=== PATIENT | male | born 1950 | race Caucasian/White ===

== ENCOUNTER 2022-05-18 12:37 | Inpatient (IN) ==
[2022-05-18] MEDS ORDERED: Ondansetron 4 mg VIAL 2 MG/ML 2 ml VIAL IV ONE ×2 (14:42→18:13)
[2022-05-18] MEDS ORDERED: NS 0.9% 1000 ml BAG 1,000 ML IV ONE ×2 (14:42→18:13)
[2022-05-18] MEDS ORDERED: Acetaminophen IV 1 GM/100ML 1,000 MG/100 ML BAG IV ONE (14:43)
[2022-05-18 15:35] LABS: ABS Lymphocytes 0.7 10^3/ul (1.0-4.8); ABS Neutrophils 14.4 10^3/ul (1.5-7.7); Eosinophil % 0.1 %; Hematocrit 46 % (42-52); Hemoglobin 14.8 g/dL (14.0-18.0); Mean Corpuscular HGB Conc 32 g/dL (31-36); Mean Corpuscular Hemoglobin 28 pg (27-31); Mean Corpuscular Volume 87 fL (80-94); Mean Platelet Volume 8.2 fL (7.4-10.4); Platelet Count 320 10^3/uL (150-450); Red Blood Count 5.32 10^6 /uL (4.18-5.48); Red Cell Distribution Width 14 % (10-15); White Blood Count 16.2 10^3/uL (3.5-10.8)
[2022-05-18 15:54] LABS: ALT 20 U/L (7-52); Albumin 4.1 g/dL (3.2-5.2); Albumin/Globulin Ratio 1.2 (1-3); Alkaline Phosphatase 149 U/L (35-149); Blood Urea Nitrogen 21 mg/dL (6-24); C Reactive Protein 299.38 mg/L (<8.01); CO2 Carbon Dioxide 22 mmol/L (22-32); Calcium 9.5 mg/dL (8.6-10.3); Chloride 92 mmol/L (101-111); Globulin 3.3 g/dL (2-4); Glucose 103 mg/dL (70-100); Lipase < 10 U/L (11.0-82.0); Sodium 130 mmol/L (135-145); Total Protein 7.4 g/dL (6.4-8.9); eGFR CKD-EPI 65.8 (>60)
[2022-05-18 16:07] LABS: AST 26 U/L (13-39); Anion Gap 16 mmol/L (2-11); Potassium 4.3 mmol/L (3.5-5.0)
[2022-05-18] MEDS ORDERED: Iodixanol (CONTRAST) 320 MG/ML 100 ML SDV IV ONE (16:16)
[2022-05-18] MEDS ORDERED: Pantoprazole VIAL 40 MG VIAL IV ONE (18:12)
[2022-05-18] MEDS ORDERED: Morphine 4 MG/ML VIAL (1 ml) IV ONE (18:13)
[2022-05-18] MEDS ORDERED: hydrALAZINE 20 mg/ml 1 ML Vial IV IV SLOW PU PRN (19:56)
[2022-05-18] MEDS ORDERED: Dextrose 50% Syringe 50 ml 25 GM/50 ML SYRINGE IV PUSH PRN (20:04)
[2022-05-18] MEDS ORDERED: Ondansetron 4 mg VIAL 2 MG/ML 2 ml VIAL IV PRN (22:02)
[2022-05-18 22:10] LABS: Urine Appearance Cloudy; Urine Bacteria Absent (Absent); Urine Bilirubin Negative (Negative); Urine Blood Negative (Negative); Urine Color Yellow; Urine Glucose 2+(150 mg/dL) (Negative); Urine Ketones 1+ (Negative); Urine Nitrite Negative (Negative); Urine Protein 1+(30 mg/dL) (Negative); Urine Red Blood Cell Trace(0-2/hpf) (Absent); Urine Specific Gravity 1.049 (1.002-1.030); Urine Squamous Epithelial Cell Present (Absent); Urine Urobilinogen Negative (Negative); Urine White Blood Cell Trace(0-5/hpf) (Absent)
[2022-05-18] MEDS: Insulin GLARGINE 100 un/ml 10 ml VIAL SUBCUT SCH (22:46)
[2022-05-18] MEDS: Enoxaparin 40 MG/0.4 ML SYR SUBCUT SCH (22:58)
[2022-05-19] MEDS: Lactated Ringers 1000 ml BAG 1,000 ML IV SCH ×4 (00:32→20:42)
[2022-05-19] MEDS: Morphine 2 MG/ML SYRINGE IV PRN ×5 (00:32→15:15)
[2022-05-19 06:56] LABS: ABS Lymphocytes 0.5 10^3/ul (1.0-4.8); ABS Neutrophils 14.9 10^3/ul (1.5-7.7); Hematocrit 36 % (42-52); Lymphocyte % 3.3 %; Mean Corpuscular HGB Conc 33 g/dL (31-36); Mean Corpuscular Hemoglobin 28 pg (27-31); Mean Corpuscular Volume 86 fL (80-94); Mean Platelet Volume 7.4 fL (7.4-10.4); Nucleated Red Blood Cells % 0.1; Platelet Count 286 10^3/uL (150-450); Red Blood Count 4.22 10^6 /uL (4.18-5.48); Red Cell Distribution Width 14 % (10-15); White Blood Count 16.4 10^3/uL (3.5-10.8)
[2022-05-19 07:59] LABS: Potassium 4.3 mmol/L (3.5-5.0); eGFR CKD-EPI 62.6 (>60)
[2022-05-19] MEDS: Pantoprazole VIAL 40 MG VIAL IV SCH (09:18)
[2022-05-19] MEDS ORDERED: Morphine 2 MG/ML SYRINGE IV ONE (10:00)
[2022-05-19] MEDS: cefTRIAXone 1 gm/50 mL D5W 1 GM/50 ML BAG IV SCH (11:15)
[2022-05-19] MEDS: metroNIDAZOLE IV 500 MG/100ML 500 MG/100 ML BAG IVPB SCH ×2 (11:55→21:11)
[2022-05-19] MEDS ORDERED: Midazolam 5 mg/5 ml VIAL 1 mg/ml 5 ml VIAL (5 mg) ONE (15:57)
[2022-05-19] MEDS ORDERED: fentaNYL 100 mcg/2 ml 50 MCG/ML VIAL ONE (15:58)
[2022-05-19] MEDS: Enoxaparin 40 MG/0.4 ML SYR SUBCUT SCH (20:46)
[2022-05-19] MEDS: Insulin GLARGINE 100 un/ml 10 ml VIAL SUBCUT SCH (20:52)
[2022-05-20] MEDS: Lactated Ringers 1000 ml BAG 1,000 ML IV SCH ×4 (01:46→19:49)
[2022-05-20] MEDS: metroNIDAZOLE IV 500 MG/100ML 500 MG/100 ML BAG IVPB SCH ×3 (04:25→19:49)
[2022-05-20 06:21] LABS: ABS Lymphocytes 0.8 10^3/ul (1.0-4.8); ABS Monocytes 1.2 10^3/ul (0-0.8); ABS Neutrophils 16.1 10^3/ul (1.5-7.7); Eosinophil % 0.2 %; Hematocrit 43 % (42-52); Hemoglobin 13.9 g/dL (14.0-18.0); Lymphocyte % 4.4 %; Mean Corpuscular HGB Conc 33 g/dL (31-36); Mean Corpuscular Hemoglobin 28 pg (27-31); Mean Corpuscular Volume 87 fL (80-94); Nucleated Red Blood Cells % 0.1; Platelet Count 291 10^3/uL (150-450); Red Cell Distribution Width 14 % (10-15); White Blood Count 18.1 10^3/uL (3.5-10.8)
[2022-05-20 06:39] LABS: Anion Gap 14 mmol/L (2-11); CO2 Carbon Dioxide 23 mmol/L (22-32); Calcium 9.1 mg/dL (8.6-10.3); Chloride 97 mmol/L (101-111); Potassium 4.4 mmol/L (3.5-5.0); Sodium 134 mmol/L (135-145)
[2022-05-20 06:45] LABS: Blood Urea Nitrogen 22 mg/dL (6-24); Glucose 113 mg/dL (70-100); eGFR CKD-EPI 55.4 (>60)
[2022-05-20] MEDS: Pantoprazole VIAL 40 MG VIAL IV SCH (08:31)
[2022-05-20 09:26] LABS: Indirect Bilirubin 0.6 mg/dL (0.3-1.0)
[2022-05-20 09:32] LABS: ALT 15 U/L (7-52); AST 23 U/L (13-39); Albumin/Globulin Ratio 1.1 (1-3); Alkaline Phosphatase 153 U/L (35-149); Globulin 2.8 g/dL (2-4); Total Protein 5.8 g/dL (6.4-8.9)
[2022-05-20] MEDS: cefTRIAXone 1 gm/50 mL D5W 1 GM/50 ML BAG IV SCH (12:27)
[2022-05-20 12:38] LABS: Lipase < 10 U/L (11.0-82.0)
[2022-05-20] MEDS: Morphine 2 MG/ML SYRINGE IV PRN ×4 (13:22→21:22)
[2022-05-20 16:42] LABS: Cholesterol 77 mg/dL; HDL Cholesterol 21.1 mg/dL
[2022-05-20 19:14] LABS: Amylase 20 U/L (29-103)
[2022-05-20 19:15] LABS: Amylase < 10 U/L (29-103)
[2022-05-20 19:20] LABS: C Reactive Protein 414.23 mg/L (<8.01)
[2022-05-20 19:28] LABS: LDL Cholesterol 37 mg/dL; Triglycerides 93 mg/dL
[2022-05-20] MEDS: Enoxaparin 40 MG/0.4 ML SYR SUBCUT SCH (19:50)
[2022-05-20] MEDS: Insulin GLARGINE 100 un/ml 10 ml VIAL SUBCUT SCH (22:41)
[2022-05-21] MEDS: Morphine 2 MG/ML SYRINGE IV PRN ×7 (00:18→22:58)
[2022-05-21] MEDS: Lactated Ringers 1000 ml BAG 1,000 ML IV SCH ×4 (00:42→20:16)
[2022-05-21] MEDS: metroNIDAZOLE IV 500 MG/100ML 500 MG/100 ML BAG IVPB SCH ×2 (03:30→12:31)
[2022-05-21 06:18] LABS: ABS Eosinophils 0.1 10^3/ul (0-0.6); ABS Lymphocytes 0.8 10^3/ul (1.0-4.8); ABS Monocytes 1.3 10^3/ul (0-0.8); ABS Neutrophils 12.9 10^3/ul (1.5-7.7); Eosinophil % 0.7 %; Hematocrit 36 % (42-52); Hemoglobin 11.4 g/dL (14.0-18.0); Lymphocyte % 5.4 %; Mean Corpuscular HGB Conc 32 g/dL (31-36); Mean Corpuscular Hemoglobin 28 pg (27-31); Mean Corpuscular Volume 88 fL (80-94); Mean Platelet Volume 7.5 fL (7.4-10.4); Platelet Count 268 10^3/uL (150-450); Red Blood Count 4.06 10^6 /uL (4.18-5.48); Red Cell Distribution Width 14 % (10-15); White Blood Count 15.1 10^3/uL (3.5-10.8)
[2022-05-21 06:37] LABS: Calcium 8.4 mg/dL (8.6-10.3); Magnesium 1.6 mg/dL (1.9-2.7); Potassium 4.1 mmol/L (3.5-5.0)
[2022-05-21 06:43] LABS: eGFR CKD-EPI 66.5 (>60)
[2022-05-21] MEDS ORDERED: Magnesium Sulfate 2 gm BAG 2 GM/50 ML BAG IVPB ONE (07:23)
[2022-05-21] MEDS: Pantoprazole VIAL 40 MG VIAL IV SCH (10:11)
[2022-05-21] MEDS: Acetaminophen IV 1 GM/100ML 1,000 MG/100 ML BAG IV SCH ×2 (10:41→18:21)
[2022-05-21] MEDS: cefTRIAXone 1 gm/50 mL D5W 1 GM/50 ML BAG IV SCH (11:31)
[2022-05-21] MEDS ORDERED: Dextrose 50% Syringe 50 ml 25 GM/50 ML SYRINGE IV PUSH PRN (11:42)
[2022-05-21] MEDS ORDERED: Iodixanol (CONTRAST) 320 MG/ML 100 ML SDV IV ONE (13:18)
[2022-05-21] MEDS ORDERED: Piperacillin/Tazobac ADVAN 3.375 GM in NS 0.9% 100 ml BAG 100 ML IV ONE (14:35)
[2022-05-21] MEDS ORDERED: Zosyn per Pharmacy NOTE FOLLOW UP SCH (15:00)
[2022-05-21 15:53] LABS: C Reactive Protein 248.36 mg/L (<8.01)
[2022-05-21 18:38] LABS: Amylase < 10 U/L (29-103)
[2022-05-21 18:44] LABS: Lipase < 10 U/L (11.0-82.0)
[2022-05-21] MEDS: Enoxaparin 40 MG/0.4 ML SYR SUBCUT SCH (20:15)
[2022-05-21] MEDS: ZOSYN 3.375 GM Q8H per EXTENDED INFUSION IV SCH (20:16)
[2022-05-21] MEDS: Insulin GLARGINE 100 un/ml 10 ml VIAL SUBCUT SCH (21:09)
[2022-05-22] MEDS: Morphine 2 MG/ML SYRINGE IV PRN ×4 (02:36→11:13)
[2022-05-22] MEDS: Acetaminophen IV 1 GM/100ML 1,000 MG/100 ML BAG IV SCH ×2 (02:39→09:27)
[2022-05-22] MEDS: Lactated Ringers 1000 ml BAG 1,000 ML IV SCH (03:05)
[2022-05-22] MEDS: ZOSYN 3.375 GM Q8H per EXTENDED INFUSION IV SCH ×3 (03:07→20:30)
[2022-05-22 06:23] LABS: ABS Eosinophils 0.1 10^3/ul (0-0.6); ABS Lymphocytes 0.8 10^3/ul (1.0-4.8); ABS Monocytes 1.2 10^3/ul (0-0.8); ABS Neutrophils 12.1 10^3/ul (1.5-7.7); Eosinophil % 0.9 %; Hematocrit 35 % (42-52); Hemoglobin 11.3 g/dL (14.0-18.0); Lymphocyte % 5.4 %; Mean Corpuscular HGB Conc 32 g/dL (31-36); Mean Corpuscular Hemoglobin 28 pg (27-31); Mean Corpuscular Volume 86 fL (80-94); Mean Platelet Volume 7.5 fL (7.4-10.4); Platelet Count 317 10^3/uL (150-450); Red Blood Count 4.06 10^6 /uL (4.18-5.48); Red Cell Distribution Width 14 % (10-15); White Blood Count 14.2 10^3/uL (3.5-10.8)
[2022-05-22 06:45] LABS: Albumin 2.2 g/dL (3.2-5.2); C Reactive Protein 196.07 mg/L (<8.01); Calcium 7.8 mg/dL (8.6-10.3); Globulin 2.2 g/dL (2-4); Magnesium 1.4 mg/dL (1.9-2.7); Potassium 3.3 mmol/L (3.5-5.0); Total Bilirubin 0.4 mg/dL (0.2-1.0); Total Protein 4.4 g/dL (6.4-8.9); eGFR CKD-EPI 82.4 (>60)
[2022-05-22] MEDS ORDERED: Potassium Chloride LIQUID 20 MEQ/15 ML LIQUID PO ONE (07:10)
[2022-05-22] MEDS: Pantoprazole VIAL 40 MG VIAL IV SCH (09:29)
[2022-05-22] MEDS: Enoxaparin 40 MG/0.4 ML SYR SUBCUT SCH (20:30)
[2022-05-22] MEDS: Insulin GLARGINE 100 un/ml 10 ml VIAL SUBCUT SCH (22:22)
[2022-05-23] MEDS: ZOSYN 3.375 GM Q8H per EXTENDED INFUSION IV SCH ×2 (03:21→13:07)
[2022-05-23 06:17] LABS: CO2 Carbon Dioxide 24 mmol/L (22-32); Calcium 7.7 mg/dL (8.6-10.3); Chloride 101 mmol/L (101-111); Sodium 134 mmol/L (135-145)
[2022-05-23 06:20] LABS: Anion Gap 9 mmol/L (2-11)
[2022-05-23 06:22] LABS: Blood Urea Nitrogen 10 mg/dL (6-24); Glucose 230 mg/dL (70-100); eGFR CKD-EPI 84.5 (>60)
[2022-05-23 06:33] LABS: Hematocrit 37 % (42-52); Hemoglobin 11.9 g/dL (14.0-18.0); Mean Corpuscular HGB Conc 32 g/dL (31-36); Mean Corpuscular Hemoglobin 28 pg (27-31); Mean Corpuscular Volume 87 fL (80-94); Red Blood Count 4.27 10^6 /uL (4.18-5.48); Red Cell Distribution Width 14 % (10-15); White Blood Count 12.8 10^3/uL (3.5-10.8)
[2022-05-23 07:33] LABS: Potassium Redraw 3.5 mmol/L (3.5-5.0)
[2022-05-23] MEDS: Pantoprazole VIAL 40 MG VIAL IV SCH (08:13)
[2022-05-23 08:29] LABS: Magnesium 1.3 mg/dL (1.9-2.7)
[2022-05-23] MEDS ORDERED: Magnesium Sulf 4 GM/100 ML IV 4,000 MG/100 ML BAG IVPB ONE (08:38)
[2022-05-23 08:57] LABS: ABS Eosinophils 0.2 10^3/ul (0-0.6); ABS Lymphocytes 0.8 10^3/ul (1.0-4.8); ABS Monocytes 0.8 10^3/ul (0-0.8); Eosinophil % 1.5 %; Lymphocyte % 6.2 %; Nucleated Red Blood Cells % 0.1; Platelet Count Platelets clumped. 10^3/uL (150-450)
[2022-05-23] MEDS ORDERED: Furosemide 20 mg/2 ml IV VIAL IV ONE (09:13)
[2022-05-23] MEDS: Insulin GLARGINE 100 un/ml 10 ml VIAL SUBCUT SCH (23:20)
[2022-05-23] MEDS: Enoxaparin 40 MG/0.4 ML SYR SUBCUT SCH (23:20)
[2022-05-24 06:06] LABS: ABS Basophils 0.1 10^3/ul (0-0.2); ABS Eosinophils 0.2 10^3/ul (0-0.6); ABS Monocytes 0.8 10^3/ul (0-0.8); Eosinophil % 1.7 %; Hematocrit 37 % (42-52); Hemoglobin 12.1 g/dL (14.0-18.0); Lymphocyte % 8.4 %; Mean Corpuscular HGB Conc 33 g/dL (31-36); Mean Corpuscular Hemoglobin 28 pg (27-31); Mean Corpuscular Volume 86 fL (80-94); Mean Platelet Volume 6.8 fL (7.4-10.4); Platelet Count 430 10^3/uL (150-450); Red Blood Count 4.27 10^6 /uL (4.18-5.48); Red Cell Distribution Width 14 % (10-15); White Blood Count 12.1 10^3/uL (3.5-10.8)
[2022-05-24 06:51] LABS: Potassium 3.3 mmol/L (3.5-5.0); eGFR CKD-EPI 91.1 (>60)
[2022-05-24] MEDS ORDERED: Furosemide 20 mg/2 ml IV VIAL IV ONE (08:11)
[2022-05-24] MEDS: KCL 20 MEQ/100 ML IVPREMIX 20 MEQ/100 ML BAG IV SCH ×3 (08:58→14:36)
[2022-05-24 10:00] LABS: Magnesium 1.5 mg/dL (1.9-2.7)
[2022-05-24] MEDS ORDERED: Magnesium Sulfate IV 3 GM in NS 0.9% 100 ml BAG 100 ML IVPB ONE (10:27)
[2022-05-24 14:41] LABS: C Reactive Protein 117.3 mg/L (<8.01)
[2022-05-24] MEDS: Enoxaparin 40 MG/0.4 ML SYR SUBCUT SCH (21:24)
[2022-05-24] MEDS: Insulin GLARGINE 100 un/ml 10 ml VIAL SUBCUT SCH (21:24)
[2022-05-25] MEDS ORDERED: Morphine 2 MG/ML SYRINGE IV ONE (03:56)
[2022-05-25 05:57] LABS: Hematocrit 38 % (42-52); Hemoglobin 12.6 g/dL (14.0-18.0); Mean Corpuscular HGB Conc 33 g/dL (31-36); Mean Corpuscular Hemoglobin 28 pg (27-31); Mean Corpuscular Volume 84 fL (80-94); Mean Platelet Volume 6.4 fL (7.4-10.4); Platelet Count 452 10^3/uL (150-450); Red Blood Count 4.52 10^6 /uL (4.18-5.48); Red Cell Distribution Width 14 % (10-15); White Blood Count 11.5 10^3/uL (3.5-10.8)
[2022-05-25 06:16] LABS: ABS Basophils 0.1 10^3/ul (0-0.2); ABS Eosinophils 0.2 10^3/ul (0-0.6); ABS Lymphocytes 1.2 10^3/ul (1.0-4.8); ABS Monocytes 0.7 10^3/ul (0-0.8); ABS Neutrophils 9.2 10^3/ul (1.5-7.7); Eosinophil % 1.9 %; Lymphocyte % 10.5 %; Nucleated Red Blood Cells % 0.2
[2022-05-25 06:34] LABS: Anion Gap 8 mmol/L (2-11); Blood Urea Nitrogen 8 mg/dL (6-24); CO2 Carbon Dioxide 33 mmol/L (22-32); Calcium 8.3 mg/dL (8.6-10.3); Chloride 98 mmol/L (101-111); Glucose 133 mg/dL (70-100); Magnesium 1.6 mg/dL (1.9-2.7); Potassium 3.7 mmol/L (3.5-5.0); Sodium 139 mmol/L (135-145); eGFR CKD-EPI 93.1 (>60)
[2022-05-25 06:55] LABS: CRP High Sensitivity > 80.00 mg/L (<2.00)
[2022-05-25 06:57] LABS: Erythrocyte Sed Rate 60 mm/Hr (0-19)
[2022-05-25 09:02] LABS: C Reactive Protein 87.84 mg/L (<8.01)
[2022-05-25] MEDS ORDERED: Potassium Chlor 20 meq TAB.ER PO ONE (11:28)
[2022-05-25] MEDS ORDERED: Magnesium Sulfate IV 3 GM in NS 0.9% 100 ml BAG 100 ML IVPB ONE (11:28)
[2022-05-25 15:11] LABS: ALT 11 U/L (7-52); AST 19 U/L (13-39); Albumin 2.7 g/dL (3.2-5.2); Alkaline Phosphatase 161 U/L (35-149); Globulin 2.8 g/dL (2-4); Indirect Bilirubin 0.2 mg/dL (0.3-1.0); Total Protein 5.5 g/dL (6.4-8.9)
[2022-05-25] MEDS: Insulin GLARGINE 100 un/ml 10 ml VIAL SUBCUT SCH (21:44)
[2022-05-25] MEDS: Enoxaparin 40 MG/0.4 ML SYR SUBCUT SCH (21:44)
[2022-05-26 05:43] LABS: Hematocrit 39 % (42-52); Hemoglobin 12.5 g/dL (14.0-18.0); Mean Corpuscular HGB Conc 32 g/dL (31-36); Mean Corpuscular Hemoglobin 27 pg (27-31); Mean Corpuscular Volume 85 fL (80-94); Mean Platelet Volume 6.3 fL (7.4-10.4); Platelet Count 461 10^3/uL (150-450); Red Blood Count 4.59 10^6 /uL (4.18-5.48); Red Cell Distribution Width 14 % (10-15); White Blood Count 12.1 10^3/uL (3.5-10.8)
[2022-05-26 06:23] LABS: Albumin 2.6 g/dL (3.2-5.2); Albumin/Globulin Ratio 0.9 (1-3); C Reactive Protein 73.25 mg/L (<8.01); Calcium 8.2 mg/dL (8.6-10.3); Globulin 2.9 g/dL (2-4); Magnesium 1.8 mg/dL (1.9-2.7); Potassium 4.1 mmol/L (3.5-5.0); Total Bilirubin 0.3 mg/dL (0.2-1.0); Total Protein 5.5 g/dL (6.4-8.9); eGFR CKD-EPI 74.1 (>60)
[2022-05-26 06:50] LABS: Erythrocyte Sed Rate 52 mm/Hr (0-19)
[2022-05-26] MEDS ORDERED: Lactated Ringers 1000 ml BAG 1,000 ML IV SCH (13:00)
[2022-05-26] MEDS ORDERED: Iodixanol (CONTRAST) 320 MG/ML 100 ML SDV IV ONE (14:46)
[2022-05-26] MEDS ORDERED: Zosyn per Pharmacy NOTE FOLLOW UP SCH (19:00)
[2022-05-26] MEDS ORDERED: Piperacillin/Tazobac ADVAN 3.375 GM in NS 0.9% 100 ml BAG 100 ML IV ONE (19:30)
[2022-05-26] MEDS: Enoxaparin 40 MG/0.4 ML SYR SUBCUT SCH (20:58)
[2022-05-26] MEDS: Insulin GLARGINE 100 un/ml 10 ml VIAL SUBCUT SCH (20:59)
[2022-05-27] MEDS: ZOSYN 3.375 GM Q8H per EXTENDED INFUSION IV SCH ×3 (00:07→16:47)
[2022-05-27 05:56] LABS: ABS Basophils 0.2 10^3/ul (0-0.2); ABS Eosinophils 0.2 10^3/ul (0-0.6); ABS Monocytes 0.6 10^3/ul (0-0.8); ABS Neutrophils 11.3 10^3/ul (1.5-7.7); Eosinophil % 1.3 %; Hematocrit 39 % (42-52); Hemoglobin 12.4 g/dL (14.0-18.0); Lymphocyte % 7.5 %; Mean Corpuscular HGB Conc 32 g/dL (31-36); Mean Corpuscular Hemoglobin 27 pg (27-31); Mean Corpuscular Volume 85 fL (80-94); Mean Platelet Volume 6.6 fL (7.4-10.4); Platelet Count 490 10^3/uL (150-450); Red Blood Count 4.51 10^6 /uL (4.18-5.48); Red Cell Distribution Width 14 % (10-15); White Blood Count 13.2 10^3/uL (3.5-10.8)
[2022-05-27 06:23] LABS: Calcium 8.4 mg/dL (8.6-10.3); Magnesium 1.5 mg/dL (1.9-2.7); Potassium 3.9 mmol/L (3.5-5.0); eGFR CKD-EPI 83.5 (>60)
[2022-05-27] MEDS ORDERED: Magnesium Sulfate 2 gm BAG 2 GM/50 ML BAG IVPB ONE (07:45)
[2022-05-27] MEDS ORDERED: Magnesium Sulfate 1 GM IV 1 GM/100 ML BAG IV ONE (08:45)
[2022-05-27] MEDS: Enoxaparin 40 MG/0.4 ML SYR SUBCUT SCH (20:37)
[2022-05-27] MEDS: Insulin GLARGINE 100 un/ml 10 ml VIAL SUBCUT SCH (20:38)
[2022-05-28] MEDS: ZOSYN 3.375 GM Q8H per EXTENDED INFUSION IV SCH ×2 (00:34→07:47)
[2022-05-28 06:54] LABS: ABS Eosinophils 0.2 10^3/ul (0-0.6); ABS Lymphocytes 1.4 10^3/ul (1.0-4.8); ABS Monocytes 0.8 10^3/ul (0-0.8); ABS Neutrophils 13.1 10^3/ul (1.5-7.7); Eosinophil % 1.2 %; Hematocrit 38 % (42-52); Hemoglobin 12.3 g/dL (14.0-18.0); Mean Corpuscular HGB Conc 32 g/dL (31-36); Mean Corpuscular Hemoglobin 28 pg (27-31); Mean Corpuscular Volume 85 fL (80-94); Mean Platelet Volume 6.6 fL (7.4-10.4); Platelet Count 597 10^3/uL (150-450); Red Blood Count 4.46 10^6 /uL (4.18-5.48); Red Cell Distribution Width 15 % (10-15); White Blood Count 15.5 10^3/uL (3.5-10.8)
[2022-05-28 07:30] LABS: Calcium 8.8 mg/dL (8.6-10.3); Potassium 4.2 mmol/L (3.5-5.0); eGFR CKD-EPI 67.9 (>60)
[2022-05-28 11:08] VITALS: BP 130/80
[2022-05-28] MEDS ORDERED: Triamcinolone 0.025% OINT 15 GM TUBE TOPICAL SCH (13:00)
[2022-05-28 13:42] LABS: Rapid COVID-19 Molecular Undetected (Undetected)
[2022-05-28] MEDS ORDERED: metroNIDAZOLE IV 500 MG/100ML 500 MG/100 ML BAG IVPB SCH (14:30)
[2022-05-28] MEDS ORDERED: cefTRIAXone 1 gm/50 mL D5W 1 GM/50 ML BAG IV SCH (15:30)
== END 2022-05-28 16:11 | disposition short-term general hospital (02) | DRG 438 ==
LOC: ED 12:37 → SUATTDRO 18:53 → EDHOLD 18:53 → MED 05-19 17:36
PROVIDERS: ADMIT Internal Medicine; ATTEND Hospitalist

== ENCOUNTER 2023-05-14 10:35 | Inpatient (IN) ==
[2023-05-14] MEDS ORDERED: NS 0.9% 1000 ml BAG 1,000 ML IV SCH (12:15)
[2023-05-14 13:55] LABS: ABS Basophils 0.1 10^3/uL (0.0-0.1); ABS Eosinophils 0.2 10^3/uL (0.0-0.5); ABS Lymphocytes 1.9 10^3/uL (1.0-4.8); ABS Monocytes 0.9 10^3/uL (0.0-1.1); ABS Neutrophils 4.6 10^3/uL (1.5-7.6); ABS Nucleated RBC 0.02 10^3/ul; Eosinophil % 2.2 %; Hematocrit 46.1 % (38-53); Hemoglobin 15.8 g/dL (13.2-16.3); Lymphocyte % 24.7 %; Mean Corpuscular Hemoglobin 28.8 pg (27-33); Mean Corpuscular Hgb Conc 34.2 g/dL (31-36); Mean Corpuscular Volume 84.3 fL (80-97); Mean Platelet Volume 7.5 fL (7.5-11.2); Nucleated Red Blood Cells % 0.3 /100 WBC (0.0-0.4); Platelet Count 363 10^3/uL (150-450); Red Blood Count 5.47 10^6/uL (4.06-5.63); Red Cell Distribution Width 14.2 % (12-17); White Blood Count 7.8 10^3/uL (3.6-10.2)
[2023-05-14 14:30] LABS: Urine Appearance Clear; Urine Bilirubin Negative (Negative); Urine Blood Negative (Negative); Urine Color Yellow; Urine Glucose 3+(>=500 mg/dL) (Negative); Urine Ketones Negative (Negative); Urine Nitrite Negative (Negative); Urine Protein Negative (Negative); Urine Specific Gravity 1.007 (1.002-1.030); Urine Urobilinogen Negative (Negative)
[2023-05-14] MEDS: Lactated Ringers 1000 ml BAG 1,000 ML IV SCH ×2 (14:31→16:21)
[2023-05-14 14:50] LABS: TSH Ultra Thyroid Stim Horm 2.35 mcIU/mL (0.34-5.60)
[2023-05-14 14:53] LABS: Albumin 4.5 g/dL (3.2-5.2); Calcium 10.6 mg/dL (8.6-10.3); Magnesium 2.2 mg/dL (1.9-2.7); Potassium 3.4 mmol/L (3.5-5.0); Total Bilirubin 0.4 mg/dL (0.2-1.0)
[2023-05-14 14:59] LABS: Albumin/Globulin Ratio 1.2 (1-3); Creatinine, Serum 1.49 mg/dL (0.67-1.17); Globulin 3.7 g/dL (2-4); Total Protein 8.2 g/dL (6.4-8.9); eGFR CKD-EPI 48.9 (>60)
[2023-05-14] MEDS ORDERED: Lactated Ringers 1000 ml BAG 1,000 ML IV ONE (16:22)
[2023-05-14 16:53] LABS: C Reactive Protein 38.68 mg/L (<8.01)
[2023-05-14] MEDS: Psyllium PAK PO SCH (18:36)
[2023-05-14] MEDS: Enoxaparin 40 MG/0.4 ML SYR SUBCUT SCH (18:36)
[2023-05-14] MEDS ORDERED: NS 0.9% 1000 ml BAG 1,000 ML IV ONE (20:15)
[2023-05-14] MEDS: Insulin GLARGINE 100 un/ml 10 ml VIAL SUBCUT SCH (21:42)
[2023-05-14] MEDS: Aspirin EC 81 mg TAB.EC (enteric coated) PO SCH (21:45)
[2023-05-15 06:18] LABS: ABS Basophils 0.1 10^3/uL (0.0-0.1); ABS Eosinophils 0.2 10^3/uL (0.0-0.5); ABS Lymphocytes 2.1 10^3/uL (1.0-4.8); ABS Monocytes 0.7 10^3/uL (0.0-1.1); ABS Neutrophils 3.2 10^3/uL (1.5-7.6); ABS Nucleated RBC 0.01 10^3/ul; Eosinophil % 3.8 %; Hematocrit 35.7 % (38-53); Hemoglobin 12.5 g/dL (13.2-16.3); Lymphocyte % 33.6 %; Mean Corpuscular Hgb Conc 35.1 g/dL (31-36); Mean Corpuscular Volume 82.6 fL (80-97); Mean Platelet Volume 7.4 fL (7.5-11.2); Nucleated Red Blood Cells % 0.2 /100 WBC (0.0-0.4); Platelet Count 277 10^3/uL (150-450); Red Blood Count 4.33 10^6/uL (4.06-5.63); Red Cell Distribution Width 13.8 % (12-17); White Blood Count 6.3 10^3/uL (3.6-10.2)
[2023-05-15 06:31] LABS: Calcium 8.8 mg/dL (8.6-10.3); Creatinine, Serum 1.32 mg/dL (0.67-1.17); Magnesium 1.7 mg/dL (1.9-2.7); Potassium 2.9 mmol/L (3.5-5.0); eGFR CKD-EPI 56.6 (>60)
[2023-05-15] MEDS ORDERED: Potassium Chlor 20 meq TAB.ER PO ONE ×2 (08:30→10:30)
[2023-05-15] MEDS ORDERED: Magnesium Sulfate IV 3 GM in NS 0.9% 100 ml BAG 100 ML IVPB ONE (09:00)
[2023-05-15] MEDS: Cholestyramine Resin 4 GM POWDER PO SCH (09:42)
[2023-05-15] MEDS: CANAGLIFLOZIN 100 MG PO SCH (09:42)
[2023-05-15] MEDS: Psyllium PAK PO SCH (09:43)
[2023-05-15] MEDS ORDERED: Influenza vaccine *QUAD* *2023-24* 0.5 ML SYRINGE IM ONE (14:27)
[2023-05-15] MEDS: Enoxaparin 40 MG/0.4 ML SYR SUBCUT SCH (17:55)
[2023-05-15] MEDS: Aspirin EC 81 mg TAB.EC (enteric coated) PO SCH (21:33)
[2023-05-15] MEDS: Insulin GLARGINE 100 un/ml 10 ml VIAL SUBCUT SCH (22:01)
[2023-05-16 06:14] LABS: ABS Basophils 0.1 10^3/uL (0.0-0.1); ABS Eosinophils 0.2 10^3/uL (0.0-0.5); ABS Lymphocytes 1.9 10^3/uL (1.0-4.8); ABS Monocytes 0.6 10^3/uL (0.0-1.1); ABS Neutrophils 3.6 10^3/uL (1.5-7.6); Eosinophil % 3.5 %; Hematocrit 36.1 % (38-53); Hemoglobin 12.6 g/dL (13.2-16.3); Lymphocyte % 29.9 %; Mean Corpuscular Hemoglobin 28.9 pg (27-33); Mean Corpuscular Volume 82.5 fL (80-97); Mean Platelet Volume 7.1 fL (7.5-11.2); Nucleated Red Blood Cells % 0.1 /100 WBC (0.0-0.4); Platelet Count 302 10^3/uL (150-450); Red Blood Count 4.38 10^6/uL (4.06-5.63); White Blood Count 6.4 10^3/uL (3.6-10.2)
[2023-05-16 06:40] LABS: Albumin 3.5 g/dL (3.2-5.2); Albumin/Globulin Ratio 1.3 (1-3); C Reactive Protein 6.65 mg/L (<8.01); Calcium 8.7 mg/dL (8.6-10.3); Creatinine, Serum 1.16 mg/dL (0.67-1.17); Globulin 2.8 g/dL (2-4); Magnesium 1.8 mg/dL (1.9-2.7); Potassium 2.9 mmol/L (3.5-5.0); Total Bilirubin 0.3 mg/dL (0.2-1.0); Total Protein 6.3 g/dL (6.4-8.9); eGFR CKD-EPI 66.1 (>60)
[2023-05-16] MEDS ORDERED: Magnesium Sulfate 2 gm BAG 2 GM/50 ML BAG IVPB ONE (07:24)
[2023-05-16] MEDS: Potassium Chlor 20 meq TAB.ER PO SCH ×2 (09:29→11:37)
[2023-05-16] MEDS: Cholestyramine Resin 4 GM POWDER PO SCH (09:30)
[2023-05-16] MEDS: Psyllium PAK PO SCH ×3 (09:30→22:04)
[2023-05-16] MEDS: CANAGLIFLOZIN 100 MG PO SCH (09:31)
[2023-05-16 11:06] LABS: Calcium 8.9 mg/dL (8.6-10.3); Creatinine, Serum 1.17 mg/dL (0.67-1.17); Potassium 3.1 mmol/L (3.5-5.0); eGFR CKD-EPI 65.4 (>60)
[2023-05-16] MEDS: Enoxaparin 40 MG/0.4 ML SYR SUBCUT SCH (17:30)
[2023-05-16] MEDS: Aspirin EC 81 mg TAB.EC (enteric coated) PO SCH (22:05)
[2023-05-16] MEDS: Insulin GLARGINE 100 un/ml 10 ml VIAL SUBCUT SCH (22:06)
[2023-05-17] MEDS: Psyllium PAK PO SCH ×3 (04:27→21:17)
[2023-05-17] MEDS ORDERED: Dextrose 50% Syringe 50 ml 25 GM/50 ML SYRINGE IV PUSH PRN (06:53)
[2023-05-17] MEDS ORDERED: Potassium Chlor 20 meq TAB.ER PO SCH (08:00)
[2023-05-17 08:12] LABS: ABS Basophils 0.1 10^3/uL (0.0-0.1); ABS Eosinophils 0.3 10^3/uL (0.0-0.5); ABS Lymphocytes 1.9 10^3/uL (1.0-4.8); ABS Monocytes 0.6 10^3/uL (0.0-1.1); ABS Neutrophils 4.3 10^3/uL (1.5-7.6); ABS Nucleated RBC 0.01 10^3/ul; Eosinophil % 3.7 %; Hematocrit 38.7 % (38-53); Hemoglobin 13.5 g/dL (13.2-16.3); Lymphocyte % 26.8 %; Mean Corpuscular Hemoglobin 28.9 pg (27-33); Mean Corpuscular Volume 82.8 fL (80-97); Mean Platelet Volume 7.2 fL (7.5-11.2); Nucleated Red Blood Cells % 0.1 /100 WBC (0.0-0.4); Platelet Count 335 10^3/uL (150-450); Red Blood Count 4.67 10^6/uL (4.06-5.63); Red Cell Distribution Width 13.9 % (12-17); White Blood Count 7.1 10^3/uL (3.6-10.2)
[2023-05-17 08:39] LABS: Calcium 8.9 mg/dL (8.6-10.3); Creatinine, Serum 1.1 mg/dL (0.67-1.17); Potassium 3.1 mmol/L (3.5-5.0); eGFR CKD-EPI 70.4 (>60)
[2023-05-17] MEDS: Cholestyramine Resin 4 GM POWDER PO SCH (09:29)
[2023-05-17] MEDS: CANAGLIFLOZIN 100 MG PO SCH (09:29)
[2023-05-17] MEDS: Potassium Chlor 20 meq TAB.ER PO SCH ×3 (09:30→14:04)
[2023-05-17] MEDS ORDERED: Pancrelipase 5,000 units CAP PO SCH (11:00)
[2023-05-17] MEDS: Pancrelipase 5,000 units CAP PO SCH ×2 (12:00→17:29)
[2023-05-17 16:44] LABS: Potassium 3.9 mmol/L (3.5-5.0)
[2023-05-17 16:49] LABS: Creatinine, Serum 1.23 mg/dL (0.67-1.17); eGFR CKD-EPI 61.6 (>60)
[2023-05-17] MEDS: Enoxaparin 40 MG/0.4 ML SYR SUBCUT SCH (17:28)
[2023-05-17] MEDS ORDERED: Potassium Chlor 20 meq TAB.ER PO ONE (21:00)
[2023-05-17] MEDS: Aspirin EC 81 mg TAB.EC (enteric coated) PO SCH (21:15)
[2023-05-17] MEDS: Insulin GLARGINE 100 un/ml 10 ml VIAL SUBCUT SCH (21:17)
[2023-05-18] MEDS: Psyllium PAK PO SCH ×3 (04:37→21:49)
[2023-05-18 06:32] LABS: ABS Basophils 0.1 10^3/uL (0.0-0.1); ABS Eosinophils 0.3 10^3/uL (0.0-0.5); ABS Lymphocytes 2.1 10^3/uL (1.0-4.8); ABS Monocytes 0.6 10^3/uL (0.0-1.1); ABS Neutrophils 4.6 10^3/uL (1.5-7.6); Eosinophil % 3.9 %; Hematocrit 39.8 % (38-53); Hemoglobin 13.8 g/dL (13.2-16.3); Lymphocyte % 27.2 %; Mean Corpuscular Hgb Conc 34.8 g/dL (31-36); Mean Corpuscular Volume 83.4 fL (80-97); Mean Platelet Volume 7.4 fL (7.5-11.2); Nucleated Red Blood Cells % 0.1 /100 WBC (0.0-0.4); Platelet Count 322 10^3/uL (150-450); Red Blood Count 4.77 10^6/uL (4.06-5.63); Red Cell Distribution Width 14.1 % (12-17); White Blood Count 7.6 10^3/uL (3.6-10.2)
[2023-05-18 06:55] LABS: Albumin 3.7 g/dL (3.2-5.2); Albumin/Globulin Ratio 1.3 (1-3); Calcium 9.1 mg/dL (8.6-10.3); Creatinine, Serum 1.15 mg/dL (0.67-1.17); Globulin 2.9 g/dL (2-4); Magnesium 1.9 mg/dL (1.9-2.7); Potassium 3.3 mmol/L (3.5-5.0); Total Bilirubin 0.3 mg/dL (0.2-1.0); Total Protein 6.6 g/dL (6.4-8.9); eGFR CKD-EPI 66.8 (>60)
[2023-05-18] MEDS: Cholestyramine Resin 4 GM POWDER PO SCH (08:17)
[2023-05-18] MEDS: CANAGLIFLOZIN 100 MG PO SCH (08:19)
[2023-05-18] MEDS: Pancrelipase 5,000 units CAP PO SCH ×3 (08:19→16:52)
[2023-05-18] MEDS: Potassium Chlor 20 meq TAB.ER PO SCH ×2 (11:36→12:56)
[2023-05-18] MEDS ORDERED: Naloxone 0.4 mg VIAL 0.4 mg/ml 1 ml VIAL IV PUSH PRN (14:04)
[2023-05-18] MEDS ORDERED: Midazolam 10 mg/10 ml VIAL 1 mg/ml 10 ml VIAL (10 mg) IV SLOW PU ONE (14:04)
[2023-05-18] MEDS ORDERED: Ondansetron 4 mg VIAL 2 MG/ML 2 ml VIAL IV ONE (14:04)
[2023-05-18] MEDS ORDERED: Flumazenil 0.5 mg/5 ml 0.1 MG/ML 5 ml VIAL IV PRN (14:04)
[2023-05-18] MEDS ORDERED: Lidocaine 2% JELLY 6 ML Topical TOPICAL ONE (14:04)
[2023-05-18] MEDS ORDERED: Lactated Ringers 1000 ml BAG 1,000 ML IV ONE (14:04)
[2023-05-18] MEDS ORDERED: fentaNYL 100 mcg/2 ml 50 MCG/ML VIAL IV SLOW PU ONE (14:04)
[2023-05-18] MEDS ORDERED: Midazolam 10 mg/10 ml VIAL 1 mg/ml 10 ml VIAL (10 mg) ONE (14:41)
[2023-05-18] MEDS ORDERED: fentaNYL 100 mcg/2 ml 50 MCG/ML VIAL ONE (14:41)
[2023-05-18] MEDS ORDERED: Zinc Oxide 16% PASTE (Butt Paste) 30 gm TUBE TOPICAL PRN (16:26)
[2023-05-18] MEDS: Enoxaparin 40 MG/0.4 ML SYR SUBCUT SCH (16:51)
[2023-05-18] MEDS: Aspirin EC 81 mg TAB.EC (enteric coated) PO SCH (21:46)
[2023-05-18] MEDS: Insulin GLARGINE 100 un/ml 10 ml VIAL SUBCUT SCH (21:54)
[2023-05-19] MEDS: Psyllium PAK PO SCH ×3 (05:33→21:44)
[2023-05-19 06:57] LABS: ABS Basophils 0.1 10^3/uL (0.0-0.1); ABS Eosinophils 0.3 10^3/uL (0.0-0.5); ABS Monocytes 0.6 10^3/uL (0.0-1.1); ABS Neutrophils 5.1 10^3/uL (1.5-7.6); Eosinophil % 3.3 %; Hematocrit 40.5 % (38-53); Hemoglobin 13.9 g/dL (13.2-16.3); Lymphocyte % 25.5 %; Mean Corpuscular Hemoglobin 28.8 pg (27-33); Mean Corpuscular Hgb Conc 34.4 g/dL (31-36); Mean Corpuscular Volume 83.9 fL (80-97); Mean Platelet Volume 7.5 fL (7.5-11.2); Platelet Count 328 10^3/uL (150-450); Red Blood Count 4.83 10^6/uL (4.06-5.63); Red Cell Distribution Width 14.3 % (12-17)
[2023-05-19 07:13] LABS: Calcium 8.9 mg/dL (8.6-10.3); Creatinine, Serum 1.16 mg/dL (0.67-1.17); Magnesium 1.8 mg/dL (1.9-2.7); Potassium 3.4 mmol/L (3.5-5.0); eGFR CKD-EPI 66.1 (>60)
[2023-05-19] MEDS ORDERED: Potassium EFFERVES 25 meq TAB PO ONE (07:40)
[2023-05-19 08:01] LABS: Venous Bicarbonate HCO3 15.7 mmol/L (24-28)
[2023-05-19] MEDS: Cholestyramine Resin 4 GM POWDER PO SCH (08:34)
[2023-05-19] MEDS: Pancrelipase 5,000 units CAP PO SCH ×3 (08:35→16:43)
[2023-05-19] MEDS: CANAGLIFLOZIN 100 MG PO SCH (08:35)
[2023-05-19] MEDS ORDERED: Sodium Bicarb 8.4% Vial 50 ML 150 MEQ in D5W 1000 ml BAG 850 ML IV SCH ×2 (09:00→23:30)
[2023-05-19 15:23] LABS: Calcium 9.4 mg/dL (8.6-10.3); Potassium 3.8 mmol/L (3.5-5.0)
[2023-05-19 15:28] LABS: Creatinine, Serum 1.24 mg/dL (0.67-1.17)
[2023-05-19] MEDS: Enoxaparin 40 MG/0.4 ML SYR SUBCUT SCH (16:43)
[2023-05-19] MEDS: Aspirin EC 81 mg TAB.EC (enteric coated) PO SCH (21:42)
[2023-05-19] MEDS: Insulin GLARGINE 100 un/ml 10 ml VIAL SUBCUT SCH (21:44)
[2023-05-19 22:04] LABS: Calcium 8.9 mg/dL (8.6-10.3); Potassium 3.5 mmol/L (3.5-5.0)
[2023-05-19 22:10] LABS: Creatinine, Serum 1.38 mg/dL (0.67-1.17); eGFR CKD-EPI 53.7 (>60)
[2023-05-20] MEDS: Psyllium PAK PO SCH ×2 (05:38→14:20)
[2023-05-20 06:32] LABS: Albumin 3.9 g/dL (3.2-5.2); Albumin/Globulin Ratio 1.3 (1-3); C Reactive Protein 1.19 mg/L (<8.01); Calcium 9.1 mg/dL (8.6-10.3); Creatinine, Serum 1.27 mg/dL (0.67-1.17); Total Bilirubin 0.3 mg/dL (0.2-1.0); Total Protein 6.9 g/dL (6.4-8.9); eGFR CKD-EPI 59.3 (>60)
[2023-05-20] MEDS: Cholestyramine Resin 4 GM POWDER PO SCH (08:06)
[2023-05-20] MEDS: CANAGLIFLOZIN 100 MG PO SCH (08:06)
[2023-05-20] MEDS: Pancrelipase 5,000 units CAP PO SCH ×3 (08:10→17:27)
[2023-05-20] MEDS ORDERED: Iodixanol (CONTRAST) 320 MG/ML 100 ML SDV IV ONE (12:32)
[2023-05-20] MEDS ORDERED: metroNIDAZOLE IV 500 MG/100ML 500 MG/100 ML BAG IVPB SCH (16:00)
[2023-05-20] MEDS: Enoxaparin 40 MG/0.4 ML SYR SUBCUT SCH (17:27)
[2023-05-20] MEDS: Aspirin EC 81 mg TAB.EC (enteric coated) PO SCH (21:10)
[2023-05-20] MEDS: Insulin GLARGINE 100 un/ml 10 ml VIAL SUBCUT SCH (21:11)
[2023-05-20] MEDS: metroNIDAZOLE IV 500 MG/100ML 500 MG/100 ML BAG IVPB SCH (21:12)
[2023-05-21] MEDS: metroNIDAZOLE IV 500 MG/100ML 500 MG/100 ML BAG IVPB SCH (04:14)
[2023-05-21 06:13] LABS: ABS Basophils 0.1 10^3/uL (0.0-0.1); ABS Eosinophils 0.3 10^3/uL (0.0-0.5); ABS Lymphocytes 1.2 10^3/uL (1.0-4.8); ABS Monocytes 0.9 10^3/uL (0.0-1.1); ABS Neutrophils 7.4 10^3/uL (1.5-7.6); ABS Nucleated RBC 0.01 10^3/ul; Eosinophil % 2.6 %; Hematocrit 38.8 % (38-53); Hemoglobin 13.7 g/dL (13.2-16.3); Lymphocyte % 11.9 %; Mean Corpuscular Hemoglobin 29.2 pg (27-33); Mean Corpuscular Hgb Conc 35.2 g/dL (31-36); Mean Platelet Volume 7.5 fL (7.5-11.2); Nucleated Red Blood Cells % 0.1 /100 WBC (0.0-0.4); Platelet Count 307 10^3/uL (150-450); Red Blood Count 4.68 10^6/uL (4.06-5.63); Red Cell Distribution Width 14.1 % (12-17); White Blood Count 9.8 10^3/uL (3.6-10.2)
[2023-05-21 07:08] LABS: Calcium 8.7 mg/dL (8.6-10.3); Creatinine, Serum 1.15 mg/dL (0.67-1.17); Magnesium 1.8 mg/dL (1.9-2.7); Potassium 2.7 mmol/L (3.5-5.0); eGFR CKD-EPI 66.8 (>60)
[2023-05-21] MEDS ORDERED: Potassium EFFERVES 25 meq TAB PO ONE (07:21)
[2023-05-21] MEDS ORDERED: Magnesium Sulfate 2 gm BAG 2 GM/50 ML BAG IVPB ONE (07:27)
[2023-05-21] MEDS: KCL 20 MEQ/100 ML IVPREMIX 20 MEQ/100 ML BAG IV SCH ×2 (08:22→10:54)
[2023-05-21 08:45] LABS: Iron 24 ug/dL (50-212); Transferrin 231 mg/dL (203-362)
[2023-05-21 08:52] LABS: Ferritin 58.1 ng/mL (24-336)
[2023-05-21 08:56] LABS: Vitamin B12 671 pg/mL (180-914)
[2023-05-21 08:59] LABS: Vitamin D Total 25(OH) 28.8 ng/mL (20-50)
[2023-05-21] MEDS ORDERED: Potassium Chlor 20 meq TAB.ER PO SCH (09:00)
[2023-05-21 09:10] LABS: Folate > 20.00 ng/mL (5.90-24.80)
[2023-05-21] MEDS: Cholestyramine Resin 4 GM POWDER PO SCH (09:41)
[2023-05-21] MEDS: CANAGLIFLOZIN 100 MG PO SCH (09:41)
[2023-05-21] MEDS: Pancrelipase 5,000 units CAP PO SCH ×3 (09:43→18:11)
[2023-05-21 10:48] LABS: Hepatitis B Surface Antigen Nonreactive (Nonreactive)
[2023-05-21 10:53] LABS: Hepatitis A Ab IgM Negative (Negative)
[2023-05-21 11:05] LABS: Hepatitis B Surface Ab Not Immune (Immune); Hepatitis C Antibody Negative (Negative)
[2023-05-21 11:58] LABS: Percent Fat 17 % fat (< 20)
[2023-05-21] MEDS ORDERED: Gadoteridol (CONTRAST) 279.3 MG/ML 10 ML IV ONE (15:27)
[2023-05-21] MEDS: Enoxaparin 40 MG/0.4 ML SYR SUBCUT SCH (18:12)
[2023-05-21] MEDS: Aspirin EC 81 mg TAB.EC (enteric coated) PO SCH (21:02)
[2023-05-21] MEDS: Insulin GLARGINE 100 un/ml 10 ml VIAL SUBCUT SCH (21:11)
[2023-05-22 06:55] LABS: Hematocrit 40.4 % (38-53); Hemoglobin 14.1 g/dL (13.2-16.3); Mean Corpuscular Hemoglobin 29.4 pg (27-33); Mean Corpuscular Hgb Conc 34.8 g/dL (31-36); Mean Corpuscular Volume 84.4 fL (80-97); Platelet Count 299 10^3/uL (150-450); Red Blood Count 4.79 10^6/uL (4.06-5.63); Red Cell Distribution Width 14.3 % (12-17); White Blood Count 6.8 10^3/uL (3.6-10.2)
[2023-05-22 07:22] LABS: Calcium 9.1 mg/dL (8.6-10.3); Creatinine, Serum 1.25 mg/dL (0.67-1.17); Magnesium 2.2 mg/dL (1.9-2.7); Phosphorus 3.5 mg/dL (2.5-5.0); Potassium 3.4 mmol/L (3.5-5.0); eGFR CKD-EPI 60.4 (>60)
[2023-05-22] MEDS ORDERED: Potassium EFFERVES 25 meq TAB PO ONE (08:00)
[2023-05-22] MEDS: Pancrelipase 5,000 units CAP PO SCH ×3 (08:55→18:16)
[2023-05-22] MEDS: Cholestyramine Resin 4 GM POWDER PO SCH (08:56)
[2023-05-22] MEDS: KCL 20 MEQ/100 ML IVPREMIX 20 MEQ/100 ML BAG IV SCH ×2 (08:56→11:38)
[2023-05-22] MEDS: CANAGLIFLOZIN 100 MG PO SCH (08:58)
[2023-05-22] MEDS: Potassium Chlor 20 meq TAB.ER PO SCH (09:00)
[2023-05-22] MEDS ORDERED: Naloxone 0.4 mg VIAL 0.4 mg/ml 1 ml VIAL IV PUSH PRN (15:59)
[2023-05-22] MEDS ORDERED: fentaNYL 100 mcg/2 ml 50 MCG/ML VIAL IV SLOW PU ONE (15:59)
[2023-05-22] MEDS ORDERED: Flumazenil 0.5 mg/5 ml 0.1 MG/ML 5 ml VIAL IV PRN (15:59)
[2023-05-22] MEDS ORDERED: Lactated Ringers 1000 ml BAG 1,000 ML IV ONE (15:59)
[2023-05-22] MEDS ORDERED: Midazolam 10 mg/10 ml VIAL 1 mg/ml 10 ml VIAL (10 mg) IV SLOW PU ONE (15:59)
[2023-05-22] MEDS ORDERED: Lidocaine 2% JELLY 6 ML Topical TOPICAL ONE (15:59)
[2023-05-22] MEDS ORDERED: Ondansetron 4 mg VIAL 2 MG/ML 2 ml VIAL IV ONE (15:59)
[2023-05-22] MEDS ORDERED: fentaNYL 100 mcg/2 ml 50 MCG/ML VIAL ONE (16:09)
[2023-05-22] MEDS ORDERED: Midazolam 10 mg/10 ml VIAL 1 mg/ml 10 ml VIAL (10 mg) ONE (16:09)
[2023-05-22 16:27] LABS: Chromogranin A 198 ng/mL (<93); Gastrin 16 pg/mL; Immunoglobulin A 327 mg/dL (61 - 356); Immunoglobulin G 957 mg/dL (767 - 1590); Immunoglobulin M 85 mg/dL (37 - 286)
[2023-05-22 17:18] LABS: Hepatitis Be Antibody Negative (Negative)
[2023-05-22] MEDS: Enoxaparin 40 MG/0.4 ML SYR SUBCUT SCH (18:17)
[2023-05-22] MEDS: Aspirin EC 81 mg TAB.EC (enteric coated) PO SCH (20:48)
[2023-05-22] MEDS: Insulin GLARGINE 100 un/ml 10 ml VIAL SUBCUT SCH (20:49)
[2023-05-23 06:39] LABS: Calcium 8.9 mg/dL (8.6-10.3); Creatinine, Serum 1.28 mg/dL (0.67-1.17); Magnesium 1.9 mg/dL (1.9-2.7); Potassium 3.1 mmol/L (3.5-5.0); eGFR CKD-EPI 58.7 (>60)
[2023-05-23] MEDS ORDERED: Potassium EFFERVES 25 meq TAB PO ONE (07:42)
[2023-05-23] MEDS ORDERED: KCL 20 MEQ/100 ML IVPREMIX 20 MEQ/100 ML BAG IV SCH (08:00)
[2023-05-23] MEDS: Cholestyramine Resin 4 GM POWDER PO SCH (08:04)
[2023-05-23] MEDS: Potassium Chlor 20 meq TAB.ER PO SCH (08:04)
[2023-05-23] MEDS: Pancrelipase 5,000 units CAP PO SCH ×2 (08:05→12:42)
[2023-05-23] MEDS: CANAGLIFLOZIN 100 MG PO SCH (08:06)
[2023-05-23 13:40] VITALS: BP 145/74
[2023-05-24] MEDS ORDERED: Potassium Chlor 20 meq TAB.ER PO SCH (09:00)
[2023-05-25 16:49] LABS: 5-Hydroxyindoleacetic Acid, U 5.6 mg/24 h (<=10.1)
[2023-05-26 13:56] LABS: Mitochondria M2 Antibody <0.1 U
== END 2023-05-23 16:00 | disposition home or self-care (01) | DRG 392 ==
LOC: ED 10:35 → EDHOLD 10:35 → MED 05-15 13:06 → SUATTDRO 05-16 11:00
PROVIDERS: ADMIT Internal Medicine; ATTEND Internal Medicine